=== PATIENT | female | born 1975 | race Caucasian/White ===

== ENCOUNTER 2016-09-18 02:28 | Emergency (ER) | payer SELFPAY ==
[~2016-09-18] VITALS: Ht 167.6 cm; Wt 65.0 kg
[~2016-09-18 02:28] MED LIST: ALBU6.7H INH; ALPR1TAB3 PO; IBUP800T23 PO; PERC10TA27 PO; TRAM50 PO
[2016-09-18 02:30] VITALS: BP 146/95; PULSE 90; RESP 16; TEMP 98.8; O2SAT 98
--- NOTE | 2016-09-18 02:39 | PD ---
HPI Chief Complaint: Syncope/Near-Syncope Time Seen by Provider: 02:38 Travel History International Travel<30 days: No Contact w/Intl Traveler<30days: No Traveled to known affect area: No History of Present Illness HPI 41-year-old female came to the emergency room with multiple unrelated complains. She had rapid speech with flight of thoughts. What I could gather from what she was telling me was that she is been with her partner who she suspects of been diagnosed with AIDS. She also has not been feeling well for past 6-7 months. After that she started going off into the possibility of being poisoned or having HIV. It was difficult to get a focused history from her. She claims to be doing drugs occasionally especially cocaine and marijuana regularly. She has history of chronic pain but does not have a primary care doctor. Her vital signs were within normal limit. [facility] Past Medical History Narrative Medical List of her past medical, surgical, social and family history was reviewed from the nursing note. Anemia: Yes Arthritis: Yes Asthma: Yes Blood Disorders: Yes (ANEMIC) Bipolar Disorder: Yes Anxiety: Yes Depression: Yes Heart Rhythm Problems: Yes Cancer: Yes (STATES UTERINE) Cardiovascular Problems: Yes High Cholesterol: No Chest Pain: Yes (STATES A HX OF CP) Congestive Heart Failure: No Cirrhosis: Yes Diabetes: No Diminished Hearing: No Endocrine: No Fibromyalgia: Yes Gastrointestinal Disorders: Yes (IBS) GERD: Yes Genitourinary: Yes (STENT TO RIGHT KIDNEY) Headaches: Yes Hepatitis: Yes Hypertension: No Immune Disorder: No Kidney Stones: Yes Musculoskeletal: Yes ("4 crushed discs") Neurologic: No Psychiatric: Yes Respiratory: No Immunizations Current: No Migraines: Yes Myocardial Infarction: No Menopausal: No : 7 Para: 3 Miscarriage: 0 : 4 Ovarian Cysts: Yes (2 FIBROID TUMORS) Tubal Ligation: Yes Past Surgical History Abdominal Surgery: Yes (MULT COLONOSCOPIES WITH POLYP REMOVAL PER PT) Section: Yes (2002 and 2005) Endocrine Surgery: No Genitourinary Surgery: Yes (STENTS IN RT KIDNEY WITH LITHOTRIPSY TIMES TWO) Gynecologic Surgery: Yes (2 C SECTIONS) Neurologic Surgery: No Other Surgery: Yes ("2 lithotripsy's,4 colonoscopy's,two right kidney stents") Social History Alcohol Use: Yes ("ALOT DAILY") Tobacco Use: Yes ("1/2 pack of cigarettes a day") Substance Use: Yes (MARIJUANA, COCAINE, POLYSUBSTANCE) Allergies-Medications (Allergen,Severity, Reaction): Coded Allergies: Sulfa (Verified Allergy, Severe, THROAT SWELLS, 09/18/16) Iodine (Verified Allergy, Intermediate, Rash, 09/18/16) Comments List of her allergies reviewed from the nursing note. Reported Meds & Prescriptions Reported Meds & Active Scripts Active Ultram (Tramadol HCl) 50 Mg Tab 50 Mg PO Q6H PRN FOR PAIN Ibuprofen 800 Mg Tab 800 Mg PO TID Proventil Hfa (Albuterol Sulfate) 6.7 Gm Aero 2 Puff INH Q4H PRN * SHAKE WELL BEFORE USE * Reported Alprazolam 1 Mg Tab 1 Mg PO DIRECTED Percocet 10-325 mg (Oxycodone-Acetaminophen 10-325 mg) Oxycodone 10/325 Acetaminophen Tab 1 Tab PO Q4H Narrative Medication List of her home medications reviewed from the nursing note. Review of Systems Except as stated in HPI: all other systems reviewed are Neg Physical Exam Narrative GENERAL: Awake, alert, anxious, no obvious distress SKIN: Focused skin assessment warm/dry. HEAD: Atraumatic. Normocephalic. EYES: Pupils equal and round. No scleral icterus. No injection or drainage. ENT: No nasal bleeding or discharge. Mucous membranes pink and moist. NECK: Trachea midline. No JVD. CARDIOVASCULAR: Regular rate and rhythm. No murmur appreciated. RESPIRATORY: No accessory muscle use. Clear to auscultation. Breath sounds equal bilaterally. GASTROINTESTINAL: Abdomen soft, non-tender, nondistended. Hepatic and splenic margins not palpable. MUSCULOSKELETAL: No obvious deformities. No clubbing. No cyanosis. No edema. NEUROLOGICAL: Awake and alert. No obvious cranial nerve deficits. Motor grossly within normal limits. Normal speech. PSYCHIATRIC: Rapid and pressured speech, flight of thoughts Data Data Last Documented VS Vital Signs Date Time Temp Pulse Resp B/P Pulse Ox O2 Delivery O2 Flow Rate FiO2 09/18/16 02:30 98.8 90 16 146/95 98 Room Air Orders MDM Medical Decision Making Medical Screen Exam Complete: Yes Emergency Medical Condition: Yes Medical Record Reviewed: Yes Differential Diagnosis Polysubstance abuse, paranoid delusions, electrolyte abnormality Narrative Course 2:57 AM I explained to the patient that the ideal place to get HIV test done would be [facility] and not the emergency room. I however would order blood test that would check for her renal and liver function tests. Soon after I left the room patient came behind me and said she would like to leave and she took off without giving anybody an opportunity to speak with her. She was in full capacity to make decisions for herself. Procedures EKG Prior to Arrival: No Diagnosis Primary Impression: Polysubstance abuse Disposition: 07 AGAINST MEDICAL ADVICE Condition: Good Regan Blanco MD September 18, 2016 02:39 Polysubstance abuse Disposition: 07 AGAINST MEDICAL ADVICE Regan Blanco MD September 18, 2016 02:39
== END 2016-09-18 02:53 | disposition left against medical advice (07) ==
LOC: NEPC 02:28
DX: F19.10 Other psychoactive substance abuse, uncomplicated (principal); F17.210 Nicotine dependence, cigarettes, uncomplicated; M79.7 Fibromyalgia
CPT/HCPCS: 99281

== ENCOUNTER 2017-06-18 20:26 | Emergency (ER) | payer SELFPAY ==
[2017-06-18] MEDS ORDERED: NALOXONE HCL 4 MG/10 ML MDV IV ONE (20:27)
[2017-06-18] MEDS ORDERED: CALCIUM CHLORIDE 10% SOLN 1 GRAM/10 ML SYR IV ONE (20:27)
[2017-06-18] MEDS ORDERED: EPINEPHrine HCL (1:10,000) 1 MG/10 ML SYRINGE IV ONE (20:27)
--- NOTE | 2017-06-18 21:01 | PD ---
HPI Chief Complaint: cardiac arrest Time Seen by Provider: 20:50 Travel History International Travel<30 days: No Contact w/Intl Traveler<30days: No Traveled to known affect area: No History of Present Illness HPI Pt was found down by her and EMS called and they found her unresponsive, no cardiac activity , no resp effort pupils fixed and dilated ... . On arrival I immediately intubate the patient oral airway full of blood and airway vocal chords very anterior and to the right , first attempt was into esophaugus then tube immediately pulled and then airway chrods indentified and tube is passed without complication , good color change on the capnometernic. Patient had received in route to epi and 2 bicarbonate ampules without return of cardiac activity she was asystole on their monitor the entire time and here in the ER she continues to be asystole on the monitor an ultrasound of her heart shows cardiac standstill I give her carcinoma calcium chloride to the IO and a peripheral access is obtained be given another epi and another bicarbonate 2 into other peripheral and still no cardiac activity on monitor nor on ultrasound. I attempt a central line in the right femoral muscle ER stay continue the entire time and after 3 sticks I am unable to obtain the central line in the femoral right however I'm assured to the peripheral line and the IO patient is received all the medical management we can achieve an I call the code at 8:42 PM [facility] Past Medical History Anemia: Yes Arthritis: Yes Asthma: Yes Blood Disorders: Yes (ANEMIC) Bipolar Disorder: Yes Anxiety: Yes Depression: Yes Heart Rhythm Problems: Yes Cancer: Yes (STATES UTERINE) Cardiovascular Problems: Yes High Cholesterol: No Chest Pain: Yes (STATES A HX OF CP) Congestive Heart Failure: No Cirrhosis: Yes Diabetes: No Diminished Hearing: No Endocrine: No Fibromyalgia: Yes Gastrointestinal Disorders: Yes (IBS) GERD: Yes Genitourinary: Yes (STENT TO RIGHT KIDNEY) Headaches: Yes Hepatitis: Yes Hypertension: No Immune Disorder: No Kidney Stones: Yes Musculoskeletal: Yes ("4 crushed discs") Neurologic: No Psychiatric: Yes Respiratory: No Immunizations Current: No Migraines: Yes Myocardial Infarction: No Menopausal: No : 7 Para: 3 Miscarriage: 0 : 4 Ovarian Cysts: Yes (2 FIBROID TUMORS) Tubal Ligation: Yes Past Surgical History Abdominal Surgery: Yes (MULT COLONOSCOPIES WITH POLYP REMOVAL PER PT) Section: Yes (2002 and 2005) Endocrine Surgery: No Genitourinary Surgery: Yes (STENTS IN RT KIDNEY WITH LITHOTRIPSY TIMES TWO) Gynecologic Surgery: Yes (2 C SECTIONS) Neurologic Surgery: No Other Surgery: Yes ("2 lithotripsy's,4 colonoscopy's,two right kidney stents") Social History Alcohol Use: Yes ("ALOT DAILY") Tobacco Use: Yes ("1/2 pack of cigarettes a day") Substance Use: Yes (MARIJUANA, COCAINE, POLYSUBSTANCE) Allergies-Medications (Allergen,Severity, Reaction): Coded Allergies: Sulfa (Sulfonamide Antibiotics) (Unverified Allergy, Severe, THROAT SWELLS , 12/08/16) iodine (Unverified Allergy, Intermediate, Rash, 12/08/16) potassium iodide (Unverified Allergy, Intermediate, Rash, 12/08/16) povidone-iodine (Unverified Allergy, Intermediate, Rash, 12/08/16) sodium iodide (Unverified Allergy, Intermediate, Rash, 12/08/16) sodium iodide (Unverified Allergy, Intermediate, Rash, 12/08/16) Reported Meds & Prescriptions Reported Meds & Active Scripts Active Ultram (Tramadol HCl) 50 Mg Tab 50 Mg PO Q6H PRN FOR PAIN Ibuprofen 800 Mg Tab 800 Mg PO TID Proventil Hfa (Albuterol Sulfate) 6.7 Gm Aero 2 Puff INH Q4H PRN * SHAKE WELL BEFORE USE * Reported Alprazolam 1 Mg Tab 1 Mg PO DIRECTED Percocet 10-325 mg (Oxycodone-Acetaminophen 10-325 mg) Oxycodone 10/325 Acetaminophen Tab 1 Tab PO Q4H Review of Systems ROS Limitations: Clinical Condition, Unresponsive Except as stated in HPI: all other systems reviewed are Neg Physical Exam Narrative GENERAL: Pupils fixed and dilated no spontaneous activity no cardiac activity no risk for effort patient is BVM in by paramedics on arrival with the oral airway SKIN: Warm and dry. Skin is cool HEAD: Atraumatic. Normocephalic. EYES: Pupils extend dilated bilateral 5 mm ENT: +bleeding oral pharynx not from lung cords. On attempting to intubate their air oral airway is filled with blood there is no blood coming from the airway nor any blood coming from the possibly it is upper oral possible injury minimal bleeding poor dentition NECK: Trachea midline. No JVD. CARDIOVASCULAR: Regular rate and rhythm. RESPIRATORY: No accessory muscle use. Clear to auscultation. Breath sounds equal bilaterally. GASTROINTESTINAL: Abdomen soft, non-tender, nondistended. Hepatic and splenic margins not palpable. MUSCULOSKELETAL: Extremities without clubbing, cyanosis, or edema. No obvious deformities. NEUROLOGICAL: unresponsive cardiac arrest Psych: MDM Medical Decision Making Medical Screen Exam Complete: Yes Emergency Medical Condition: Yes Differential Diagnosis pt comes in Cardiac arrest Resusitation efforts from [facility] and continues in ER, mostly diagnosis is resp arrest due to drug overdose that lead to resp failure to acidosis to cardiac arrest. Pt. is now in cardiac arrest resistant to all resusitation meds and intubation oxyenation and still no cardiac activity Narrative Course cardiac arrest resustiation and CPR for 30 minutes in the ER after 1 hour in asystolic all resustation efforts become futile and code is called off Critical Care Narrative CPR for 30 minutes Diagnosis Primary Impression: Cardiac arrest Disposition: 20 Luis Beebe MD Jun 18, 2017 21:01
== END 2017-06-19 00:42 | disposition expired ==
LOC: NEPE 20:26 → NEPI 06-19 00:42
DX: I46.9 Cardiac arrest, cause unspecified (principal); D64.9 Anemia, unspecified; M19.90 Unspecified osteoarthritis, unspecified site; J45.909 Unspecified asthma, uncomplicated; F31.9 Bipolar disorder, unspecified; K74.60 Unspecified cirrhosis of liver; K21.9 Gastro-esophageal reflux disease without esophagitis; Z86.19 Personal history of other infectious and parasitic diseases; Z87.442 Personal history of urinary calculi
CPT/HCPCS: 31500; 36556; 92950; 99285; J0171; J2310